=== PATIENT | male | born 1955 | race Caucasian/White ===

== ENCOUNTER 2018-08-16 08:00 | Inpatient (IN) | payer MEDICARE, OTHER ==
[2018-08-15 14:42] LABS: BASOPHILS % 0.5 % (0.0-1.0); EOSINOPHILS # (AUTO) 0.3 (0.0-0.4); EOSINOPHILS % 3.8 % (0.0-6.0); HEMATOCRIT 34.4 % (38.2-49.6); HEMOGLOBIN 11.6 g/dL (14.0-18.0); LYMPHOCYTES # (AUTO) 3.2 (1.0-3.2); LYMPHOCYTES % 41.9 % (18.0-39.1); MEAN CORPUSCULAR HGB CONC 33.7 g/dL (31-35); MONOCYTES # (AUTO) 0.6 (0.2-0.8); MONOCYTES % 7.7 % (4.4-11.3); NEUTROPHILS # (AUTO) 3.5 (2.1-6.9); PLATELET COUNT 249 x10e3/uL (140-360); RED BLOOD COUNT 3.74 x10e6/uL (4.3-5.7); RED CELL DISTRIBUTION WIDTH 13.4 % (11.7-14.4)
[2018-08-15 14:58] LABS: ANION GAP 11.7 mmol/L (8-16); BLOOD UREA NITROGEN 15 mg/dL (7-26); BUN/CREATININE RATIO 23 (6-25); CALCIUM 9.2 mg/dL (8.4-10.2); CARBON DIOXIDE 25 mmol/L (22-29); CHLORIDE 103 mmol/L (98-107); CREATININE, SERUM 0.64 mg/dL (0.72-1.25); EST GLOMERULAR FILTRATION RATE > 60 ML/MIN (60-); GLUCOSE 77 mg/dL (74-118); POTASSIUM 3.7 mmol/L (3.5-5.1); SODIUM 136 mmol/L (136-145)
--- NOTE | 2018-08-15 15:01 | Diagnostic Imaging Report ---
EXAMINATION: PA and lateral views of the chest. COMPARISON: None CLINICAL HISTORY: Preoperative study for urology procedure DISCUSSION: Lungs are well-inflated. No focal airspace consolidation, pleural effusion, or pneumothorax. Tortuous thoracic aorta with otherwise normal cardiomediastinal contour. No acute osseous abnormalities. Degenerative disc changes of the thoracic spine. IMPRESSION: No acute cardiopulmonary abnormalities. Signed by: Dr. Ricky Avila M.D. on 08/15/2018 2:58 PM
[~2018-08-16] VITALS: Ht 172.7 cm; Wt 63.1 kg
[~2018-08-16 08:00] MED LIST: DICLOFENAC SOD100 MG PO; DOCUSATE SODIU100 MG PO; FLOMAX0.4 MG PO; GABAPENTIN600 MG PO; IBUPROFEN400 MG PO; IRON PO; MORPHINE SULFAT30 M2 PO; MULTI-VITAMIN1 EACH PO; NORCO 10-325 T1 EACH PO; SENNOSIDES8.6 MG PO; STOOL SOFTENER50 MG PO; TYLENOL EXTRA500 MG PO; VITAMIN B-122500 MCG PO
--- OUTSIDE RECORDS SUMMARY | 2018-08-16 08:03 | XMS REPORT ---
Author Author [facility] Address Unknown Phone Unavailable Care Team Providers Care Electronic Commerce Specialist Name Role Phone DELORIS ACOSTA Unavailable Unavailable Problems This patient has no known problems. Allergies, Adverse Reactions, Alerts This patient has no known allergies or adverse reactions. Medications This patient has no known medications. Results Test Description Test Time Test Comments Text Results Atomic Results Result Comments CHEST 2 VIEWS 2018-08-15 14:57:00 [facility] [address] [address] Patient Name: YANNI JOYA JR MR #: [id number] : 1955 Age/Sex: 62/M Req #: [id number] Adm Physician: Ordered by: DELORIS ACOSTA MD Report #: [id number] Location: OR Room/Bed: Procedure: [id number] DX/CHEST 2 VIEWS Exam Date: 08/15/18 Exam Time: 1430 REPORT STATUS: Signed EXAMINATION: PA and lateral views of the chest. C OMPARISON: None CLINICAL HISTORY: Preoperative study for urology procedure DISCUSSION: Lungs are well-inflated. No focal airspace consolidation, pleural effusion, or pneumothorax. Tortuous thoracic aorta with otherwise normal cardiomediastinal contour. No acute osseous abnormalities. Degenerative disc changes of the thoracic spine. IMPRESSION: No acute cardiopulmonary abnormalities. Signed by: Dr. Sandee Benedict M.D. on 08/15/2018 2:58 PM Dictated By: SANDEE BENEDICT MD 58 Transcribed By: DAGOBERTO on 08/15/181457 COPY TO: DELORIS ACOSTA MD
[2018-08-16] MEDS ORDERED: GENTAMICIN 80MG/NS 100 ML 200 ML IV ONE (08:38)
[2018-08-16] MEDS ORDERED: CEFTRIAXONE SOD 1 GM/NS 50 ML 50 ML IV ONE (08:38)
[2018-08-16] MEDS ORDERED: BELLADONNA/OPIUM 30 MG SUPP RC ONE (10:35)
[2018-08-16] MEDS ORDERED: IOPAMIDOL 610MG/1ML 300 MG/ML VIAL IV ONE (10:35)
[2018-08-16] MEDS ORDERED: FENTANYL CITRATE/PF 100MCG/2 ML INJ ONE ×2 (12:07→13:41)
[2018-08-16] MEDS ORDERED: MORPHINE SULFATE INJ 4 MG/ML INJ 1ML ONE ×2 (12:19→12:42)
[2018-08-16] MEDS ORDERED: MIDAZOLAM HCL 2 MG/2 ML VIAL ONE ×2 (13:05→13:41)
[2018-08-16] MEDS ORDERED: NALOXONE HCL INJ 0.4 MG/ML AMP IV PRN (13:30)
[2018-08-16] MEDS ORDERED: DIPHENHYDRAMINE HCL 25 MG CAP PO PRN (13:30)
[2018-08-16] MEDS ORDERED: ONDANSETRON HCL INJ 2MG/ML 2ML 2 MG/ML VIAL IV PRN (13:30)
[2018-08-16] MEDS ORDERED: PHENAZOPYRIDINE HCL 100 MG TAB PO ONE (13:30)
[2018-08-16] MEDS ORDERED: KETAMINE HCL INJ 50 MG/ML 10 ML VIAL ONE (13:41)
[2018-08-16] MEDS ORDERED: MORPHINE SULFATE 1 MG/ML 30ML PCA ONE (14:19)
[2018-08-16 14:40] VITALS: BP 148/66
[2018-08-16] MEDS: D5.45%NS/KCL 20MEQ 1,000 ML IV SCH ×2 (15:12→21:24)
[2018-08-16] MEDS: PIPERACILLIN/TAZO 2.25 GM 50 ML IV SCH ×2 (15:12→21:26)
[2018-08-16 15:47] VITALS: BP 148/66
[2018-08-16] MEDS ORDERED: ONDANSETRON HCL INJ 2MG/ML 2ML 2 MG/ML VIAL ONE (17:29)
[2018-08-16] MEDS ORDERED: LIDOCAINE HCL 2% LOCAL INJ 5 ML SDV VIAL INJ ONE (17:29)
[2018-08-16] MEDS ORDERED: SEVOFLURANE INHAL SOLN 250 ML PEN BTL ONE (17:29)
[2018-08-16] MEDS ORDERED: PROPOFOL IV EMULSION 10 MG/ML 20 ML VIAL ONE (17:29)
[2018-08-16] MEDS ORDERED: DOCUSATE SODIUM 50 MG PO SCH (17:30)
[2018-08-16] MEDS ORDERED: IBUPROFEN 400 MG TAB PO PRN (17:30)
[2018-08-16] MEDS ORDERED: SENNOSIDES 8.6 MG TAB PO PRN (17:30)
--- NOTE | 2018-08-16 17:31 | Diagnostic Imaging Report ---
Bilateral retrograde urography Indications: ^[id number] ^1044 ^C-ARM RETROGRADE PYELOGRAMS Comparison: None RADIATION DOSE: Fluoroscopy Time: 00:00:15 min Dose (Kerma) Area Product: 122.75 mGycm2 Air Kerma (AK) value has been reviewed. It is below the limits set by the Radiation Protocol Committee (RPC) committee. Findings: Contrast was injected into the left ureter in a retrograde fashion.The caliber of the left ureter appears normal. Left renal collecting system also filled unremarkably. Contrast was injected into the right ureter in a retrograde fashion.The caliber of the right ureter appears normal. Right renal collecting system also filled unremarkably. IMPRESSION: Unremarkable bilateral retrograde urography. Signed by: Dr. Marline Calloway MD on 08/16/2018 5:28 PM
[2018-08-16] MEDS: DOCUSATE SODIUM 100 MG CAP PO SCH (17:54)
[2018-08-16] MEDS: PHENAZOPYRIDINE HCL 100 MG TAB PO SCH (17:54)
[2018-08-16] MEDS ORDERED: DOCUSATE SODIUM LIQD 100 MG/10 ML UDC PO PRN (18:45)
--- NOTE | 2018-08-16 19:10 | NUR ---
REPORT RECEIVED FROM OFF GOING NURSE, PT RESTING IN BED ALERT AND ORIENTED, NO DISTRESS NOTED, IV INFUSING PER ORDER, OVERNIGHT BABYSITTER IN PLACE, CBI IN PROGRESS AND PATENT WITH NO COMPLICATIONS NOTED, CALL LIGHT IN REACH, INSTRUCTED TO CALL WITH NEEDS
[2018-08-16 20:00] VITALS: BP 122/59
[2018-08-16] MEDS ORDERED: NON-FORMULARY MEDICATION (Gabapentin 600 MG) PO SCH (21:00)
[2018-08-16] MEDS: GABAPENTIN 300 MG CAP PO SCH (21:00)
[2018-08-17] VITALS (7 sets, daily range): BP systolic 104–130; BP diastolic 55–60
[2018-08-17] MEDS: PIPERACILLIN/TAZO 2.25 GM 50 ML IV SCH ×3 (05:07→21:59)
[2018-08-17] MEDS: MORPHINE SULFATE 1 MG/ML 30ML PCA IV PRN ×3 (05:14→17:11)
[2018-08-17 05:29] LABS: BASOPHILS % 0.2 % (0.0-1.0); EOSINOPHILS # (AUTO) 0.2 (0.0-0.4); EOSINOPHILS % 2.1 % (0.0-6.0); HEMATOCRIT 27.2 % (38.2-49.6); HEMOGLOBIN 9.6 g/dL (14.0-18.0); LYMPHOCYTES # (AUTO) 1.6 (1.0-3.2); LYMPHOCYTES % 15.5 % (18.0-39.1); MEAN CORPUSCULAR HEMOGLOBIN 32.3 pg (28-32); MEAN CORPUSCULAR HGB CONC 35.3 g/dL (31-35); MEAN CORPUSCULAR VOLUME 91.6 fL (81-99); MONOCYTES # (AUTO) 0.8 (0.2-0.8); MONOCYTES % 7.5 % (4.4-11.3); NEUTROPHILS # (AUTO) 7.5 (2.1-6.9); NEUTROPHILS % 74.4 % (38.7-80.0); PLATELET COUNT 196 x10e3/uL (140-360); RED BLOOD COUNT 2.97 x10e6/uL (4.3-5.7); RED CELL DISTRIBUTION WIDTH 14.4 % (11.7-14.4)
[2018-08-17] MEDS: D5.45%NS/KCL 20MEQ 1,000 ML IV SCH ×3 (05:30→21:30)
[2018-08-17 05:49] LABS: BLOOD UREA NITROGEN 6 mg/dL (7-26); BUN/CREATININE RATIO 10 (6-25); CALCIUM 7.9 mg/dL (8.4-10.2); CARBON DIOXIDE 19 mmol/L (22-29); CHLORIDE 118 mmol/L (98-107); CREATININE, SERUM 0.58 mg/dL (0.72-1.25); EST GLOMERULAR FILTRATION RATE > 60 ML/MIN (60-); GLUCOSE 105 mg/dL (74-118); SODIUM 141 mmol/L (136-145)
--- NOTE | 2018-08-17 07:12 | History and Physical ---
HISTORY OF PRESENT ILLNESS: The patient is a 62-year-old gentleman who comes with TURP, the patient had prostatic symptoms of benign prostatic hypertrophy. The patient has a second procedure for TURP. PAST MEDICAL HISTORY: History of orthopedic surgeries and low back problems; otherwise, noncontributory. No hypertension, no diabetes, no hyperlipidemia. MEDICATIONS: Medicines the patient takes at home are 900 mg q.6h., vitamin B12 daily, diclofenac 100 mg ER once a day, docusate once a day, gabapentin 600 mg 3 times a day, Aguilar 10/325 mg q.6h., morphine sulfate 30 mg b.i.d., sennosides 8.6 mg, and tamsulosin 0.4 mg. SURGICAL HISTORY: Multiple back surgeries and history of prostate surgeries in the past. REVIEW OF SYSTEMS: Negative for chest pain. No shortness of breath. No nausea, vomiting, or diarrhea. No constipation. No rectal bleeding. No hematochezia. Positive for hematuria after TURP. ALLERGIES: NO DRUG ALLERGIES. SOCIAL HISTORY: No ETOH. No IV drug abuse. PHYSICAL EXAMINATION VITAL SIGNS: Temperature is 98.7, pulse of 61, respirations of 20, blood pressure is 122/60 with pulse oximetry of 95% on room air. HEENT: Normocephalic and atraumatic. Pupils are reactive to light and accommodation. CVS: S1 and S2 normal. Regular rate and rhythm. ABDOMEN: Nontender and nondistended. Leroy to gravity and being irrigated at this time. Positive for blood in the Leroy catheter. EXTREMITIES: No clubbing, no cyanosis, and no edema. LABORATORY VALUES: White count is 10.13, hemoglobin of 9.6, hematocrit of 27.2, and platelet count 196, neutrophil count 74.5. Chemistry; sodium 141, potassium of 4.0, chloride of 118, BUN 6, creatinine 0.59 and calcium 7.9. IMAGING STUDIES: Retrograde pyelogram was done yesterday before TURP, unremarkable. ASSESSMENT: This 62-year-old gentleman; 1. Status post TURP for benign prostatic hypertrophy. 2. History of low back pain. PLAN: Plan is to continue with bladder irrigation. Follow up with labs. Continue monitoring his vitals. Further recommendations per clinical course. At this time, the patient seems to be asymptomatic. Last T-max was 100.4, keep watching for spikes in temperature. Incentive spirometry further recommendations per clinical course. Job#: [id number] JUN
[2018-08-17] MEDS: PHENAZOPYRIDINE HCL 100 MG TAB PO SCH ×3 (08:21→17:06)
[2018-08-17] MEDS: MULTIVITAMINS/MINERALS TAB PO SCH (08:21)
[2018-08-17] MEDS: TAMSULOSIN HCL 0.4 MG CAP PO SCH (08:21)
[2018-08-17] MEDS: GABAPENTIN 300 MG CAP PO SCH ×3 (08:21→20:08)
[2018-08-17] MEDS: DOCUSATE SODIUM 100 MG CAP PO SCH ×2 (08:21→17:06)
[2018-08-17] MEDS: FERROUS SULFATE 325 MG TAB PO SCH (08:21)
[2018-08-17] MEDS: CYANOCOBALAMIN 1,000 MCG TAB PO SCH ×2 (08:22→17:06)
[2018-08-17] MEDS ORDERED: NON-FORMULARY MEDICATION ([Iron] 65 MG) PO SCH (09:00)
[2018-08-17] MEDS ORDERED: CYANOCOBALAMIN 2500 MCG PO SCH (09:00)
--- NOTE | 2018-08-17 13:12 | NUR ---
Loading Checker to bedside to discuss plan of care with patient/family. CM/SW role and care transitions discussed. Anticipated discharge plan discussed along with duration of care. CM/SW discussed patients right to make decisions in care. CM/SW work hours given. Patient lives: alone in an apartment Admit/Transfer: From PACU POA/Emergency contact: radha Hayes [phone] Current/Previous Home Health: none PCP/Follow-up Care: Dr. Willis Current/Previous DME: has walker, wheelchair, raised toilet seat, shower bench; states he has been mostly wheelchair bound Other Services: none Employment Status: unemployed Areas of Concerns: weakness Referral Needs: home health vs snf Education Needs: none IMM/NAPOLES given and signed (if applicable): IMM Goal for discharge: pt stated he wants to go to inpatient rehab from hospital. Stated he was a [place] previously and the therapist there recommended he go to inpatient rehab, but somehow he "fell thru the cracks" and was discharged home. Stated Dr. Willis told him he would be able to go to inpatient rehab next time he was in the hospital. CM explained to him that he would have to qualify for inpatient rehab and insurance would have to approve it. Pt acknowledged and asked that CM speak with Dr. Juarez regarding rehab. CM called and spoke with Dr. Juarez, who stated that pt is medically stable for discharge. Dr. Juarez does not think pt would qualify for inpatient rehab. Stated he can discharge once cleared by urology. Dr. Li wrote order for home health yesterday. CM informed pt regarding order. He states that he does not want CM to set up home health at this time. Wants to speak to Dr. Li prior to making any decisions. Pending rounds by Dr. Li. CM/SW left business card at the bedside with contact information. Name and number was also written on the patients whiteboard. Patient verbalized understanding of discussion. CM will follow-up with ongoing discharge and transition of care needs.
--- NOTE | 2018-08-17 19:10 | NUR ---
REPORT RECEIVED FROM OFF GOING NURSE, PT RESTING IN BED ALERT AND ORIENTED, NO DISTRESS NOTED, IV INFUSING PER ORDER, SPEECH LANGUAGE PATHOLOGIST AT BEDSIDE WITH BUTTON IN REACH, CBI IN PROGRESS WITH NO DISTRESS NOTED, DENIES NEEDS, CALL LIGHT IN REACH, INSTRUCTED TO CALL WITH NEEDS
[2018-08-18] VITALS (8 sets, daily range): BP systolic 102–133; BP diastolic 55–62
--- NOTE | 2018-08-18 04:32 | NUR ---
PT RESTING IN BED ALERT AND ORIENTED, NO DISTRESS NOTED, DENIES NEEDS, CALL LIGHT IN REACH, WORSHIP DIRECTOR PUMP BUTTON IN HAND, CBI IN PLACE WITH NO COMPLICATIONS NOTED, INSTRUCTED TO CALL WITH NEEDS
[2018-08-18 05:17] LABS: BASOPHILS % 0.3 % (0.0-1.0); EOSINOPHILS # (AUTO) 0.5 (0.0-0.4); EOSINOPHILS % 4.8 % (0.0-6.0); HEMATOCRIT 26.3 % (38.2-49.6); HEMOGLOBIN 9.4 g/dL (14.0-18.0); LYMPHOCYTES # (AUTO) 2.5 (1.0-3.2); LYMPHOCYTES % 25.1 % (18.0-39.1); MEAN CORPUSCULAR HEMOGLOBIN 33.1 pg (28-32); MEAN CORPUSCULAR HGB CONC 35.7 g/dL (31-35); MEAN CORPUSCULAR VOLUME 92.6 fL (81-99); MONOCYTES # (AUTO) 1.1 (0.2-0.8); MONOCYTES % 11.1 % (4.4-11.3); NEUTROPHILS # (AUTO) 5.8 (2.1-6.9); NEUTROPHILS % 58.4 % (38.7-80.0); PLATELET COUNT 149 x10e3/uL (140-360); RED BLOOD COUNT 2.84 x10e6/uL (4.3-5.7); RED CELL DISTRIBUTION WIDTH 14.3 % (11.7-14.4)
[2018-08-18] MEDS: PIPERACILLIN/TAZO 2.25 GM 50 ML IV SCH ×3 (05:17→21:49)
[2018-08-18] MEDS: D5.45%NS/KCL 20MEQ 1,000 ML IV SCH ×2 (05:30→10:28)
[2018-08-18 05:38] LABS: ANION GAP 11.3 mmol/L (8-16); BLOOD UREA NITROGEN 6 mg/dL (7-26); BUN/CREATININE RATIO 10 (6-25); CALCIUM 8.7 mg/dL (8.4-10.2); CARBON DIOXIDE 23 mmol/L (22-29); CHLORIDE 110 mmol/L (98-107); CREATININE, SERUM 0.62 mg/dL (0.72-1.25); EST GLOMERULAR FILTRATION RATE > 60 ML/MIN (60-); GLUCOSE 92 mg/dL (74-118); POTASSIUM 4.3 mmol/L (3.5-5.1); SODIUM 140 mmol/L (136-145)
[2018-08-18] MEDS: DOCUSATE SODIUM 100 MG CAP PO SCH ×2 (08:09→17:22)
[2018-08-18] MEDS: GABAPENTIN 300 MG CAP PO SCH ×3 (08:09→20:13)
[2018-08-18] MEDS: MULTIVITAMINS/MINERALS TAB PO SCH (08:09)
[2018-08-18] MEDS: CYANOCOBALAMIN 1,000 MCG TAB PO SCH ×2 (08:09→17:22)
[2018-08-18] MEDS: PHENAZOPYRIDINE HCL 100 MG TAB PO SCH ×3 (08:09→17:22)
[2018-08-18] MEDS: FERROUS SULFATE 325 MG TAB PO SCH (08:09)
[2018-08-18] MEDS: TAMSULOSIN HCL 0.4 MG CAP PO SCH (08:09)
[2018-08-18] MEDS ORDERED: ACETAMINOPHEN/CODEINE 300MG - 30MG TAB PO PRN (10:15)
--- NOTE | 2018-08-18 10:15 | NUR ---
TRACY SAEZ , SERIALS STARTED
--- NOTE | 2018-08-18 12:30 | NUR ---
PT VOIDED AFTER MOLINA REMOVAL (PINK URINE)
[2018-08-18] MEDS: MORPHINE SULFATE 1 MG/ML 30ML PCA IV PRN (14:30)
--- NOTE | 2018-08-18 19:26 | NUR ---
PT IS RESTING IN BED. NO RESPIRATORY DISTRESS NOTED. BED IN THE LOWEST POSITION, LOCKED, AND CALL LIGHT WITHIN REACH. WILL CONTINUE TO MONITOR.
[2018-08-19] VITALS: BP 111/51
--- NOTE | 2018-08-19 00:07 | Progress Note ---
DATE: SUBJECTIVE: A 62-year-old male status post TURP, doing well. No complaints. Pain is controlled. Patient is undergoing bladder irrigation now. The Leroy looks good and the hematuria has decreased drastically. OBJECTIVE GENERAL: Patient is alert and oriented x3. VITAL SIGNS: Temperature is 98.9, pulse of 60, respirations of 20, blood pressure is 113/57, pulse oximetry 97% on room air. HEENT: Normocephalic, atraumatic. Pupils are reactive to light and accommodation. CVS: S1, S2 normal. Regular rate and rhythm. ABDOMEN: Nontender and nondistended. EXTREMITIES: No clubbing, no cyanosis, no edema. GENITOURINARY: Leroy catheter to gravity. Patient is asymptomatic at this time. Complains of back pain, which is baseline for him. LABORATORY VALUES: Hemoglobin is 9.4, hematocrit of 26.3 and no left shift present. Chemistries normal. Chloride is 110. BUN and creatinine within normal limits. ASSESSMENT AND PLAN: A 62-year-old man status post transurethral resection of prostate for benign prostatic hypertrophy, doing well. Patient can be discharged home on Leroy catheter with continuous irrigation at home. Further recommendations per clinical course. The patient can be discharged and follow up with his primary care physician, Dr. Willis and also with Dr. Li in a couple of days. Further recommendations as an outpatient. Job#: [id number] TAYO
[2018-08-19] MEDS: MORPHINE SULFATE 1 MG/ML 30ML PCA IV PRN (04:16)
[2018-08-19 05:22] LABS: BASOPHILS % 0.4 % (0.0-1.0); EOSINOPHILS # (AUTO) 0.5 (0.0-0.4); EOSINOPHILS % 5.9 % (0.0-6.0); HEMATOCRIT 25.9 % (38.2-49.6); HEMOGLOBIN 9.8 g/dL (14.0-18.0); LYMPHOCYTES # (AUTO) 2.9 (1.0-3.2); LYMPHOCYTES % 32.1 % (18.0-39.1); MEAN CORPUSCULAR HEMOGLOBIN 34.6 pg (28-32); MEAN CORPUSCULAR HGB CONC 37.8 g/dL (31-35); MEAN CORPUSCULAR VOLUME 91.5 fL (81-99); MONOCYTES # (AUTO) 0.9 (0.2-0.8); MONOCYTES % 9.8 % (4.4-11.3); NEUTROPHILS # (AUTO) 4.7 (2.1-6.9); NEUTROPHILS % 51.4 % (38.7-80.0); PLATELET COUNT 171 x10e3/uL (140-360); RED BLOOD COUNT 2.83 x10e6/uL (4.3-5.7); RED CELL DISTRIBUTION WIDTH 13.8 % (11.7-14.4)
[2018-08-19 05:55] LABS: ANION GAP 13.7 mmol/L (8-16); BLOOD UREA NITROGEN 7 mg/dL (7-26); BUN/CREATININE RATIO 11 (6-25); CALCIUM 8.7 mg/dL (8.4-10.2); CARBON DIOXIDE 23 mmol/L (22-29); CHLORIDE 108 mmol/L (98-107); CREATININE, SERUM 0.62 mg/dL (0.72-1.25); EST GLOMERULAR FILTRATION RATE > 60 ML/MIN (60-); GLUCOSE 118 mg/dL (74-118); POTASSIUM 3.7 mmol/L (3.5-5.1); SODIUM 141 mmol/L (136-145)
[2018-08-19] MEDS: PIPERACILLIN/TAZO 2.25 GM 50 ML IV SCH ×3 (05:56→21:45)
--- NOTE | 2018-08-19 07:36 | NUR ---
patient resting in bed, Alert with no distress, call light in reach, on AMBULETTE DRIVER PUMP, Resp even and unlabored, normal breathing
[2018-08-19 07:49] VITALS: BP 111/55
[2018-08-19] MEDS: GABAPENTIN 300 MG CAP PO SCH ×3 (08:41→21:45)
[2018-08-19] MEDS: PHENAZOPYRIDINE HCL 100 MG TAB PO SCH ×3 (08:41→17:31)
[2018-08-19] MEDS: FERROUS SULFATE 325 MG TAB PO SCH (08:41)
[2018-08-19] MEDS: TAMSULOSIN HCL 0.4 MG CAP PO SCH (08:41)
[2018-08-19] MEDS: DOCUSATE SODIUM 100 MG CAP PO SCH ×2 (08:41→17:31)
[2018-08-19] MEDS: CYANOCOBALAMIN 1,000 MCG TAB PO SCH ×2 (08:41→17:31)
[2018-08-19] MEDS: MULTIVITAMINS/MINERALS TAB PO SCH (08:41)
[2018-08-19 08:53] VITALS: BP 111/55
[2018-08-19 12:10] VITALS: BP 119/61
--- NOTE | 2018-08-19 14:12 | NUR ---
PT SIGNED CHOICE FOR [facility]. FAXED CLINICALS TO [phone]. WILL UPDATE IF AUTH GIVEN.
[2018-08-19] MEDS: D5.45%NS/KCL 20MEQ 1,000 ML IV SCH (14:45)
--- NOTE | 2018-08-19 15:59 | NUR ---
FILLED OUT PASRR FILED ON CHART FILLED OUT RTF GAVE TO NURSE SIGNED IMM AND FILED IN CHART.
--- NOTE | 2018-08-19 15:59 | NUR ---
FACILITY TO CALL NURSES STATION TO GIVE ROOM NUMBER.
[2018-08-19 16:08] VITALS: BP 144/66
--- NOTE | 2018-08-19 18:35 | NUR ---
patient resting in bed, on SURGERY SCHEDULER PUMP, Called [facility] area regarding bed, they said they still waiting for Auth, patient not in any distress, normal breathing pattern, no labored breathing
[2018-08-19 20:00] VITALS: BP 113/61
--- NOTE | 2018-08-19 20:05 | NUR ---
PATIENT INCONTINENT OF URINE, KEPT CLEAN AND DRY. HE'S ENCOURAGED TO REPOSITION FREQUENTLY IN BED TO PREVENT PRESSURE ULCER. CALL LIGHT WITHIN EASY REACH, BED ALARM ON.
--- NOTE | 2018-08-19 23:30 | NUR ---
PATIENT RESTING IN BED, NO RESPIRATORY DISTRESS OBSERVED. ASSISTED WITH ADLS, BED ALARM ON, CALL LIGHT WITHIN EASY REACH.
[2018-08-20] VITALS (7 sets, daily range): BP systolic 96–141; BP diastolic 55–63
--- NOTE | 2018-08-20 03:40 | NUR ---
PATIENT ASSISTED WITH ADLS, HE'S ENCOURAGED TO REPOSITION FREQUENTLY IN BED DUE TO REDNESS TO THE SACRUM.
[2018-08-20 05:15] LABS: BASOPHILS % 0.5 % (0.0-1.0); EOSINOPHILS # (AUTO) 0.5 (0.0-0.4); EOSINOPHILS % 6.3 % (0.0-6.0); HEMATOCRIT 29.6 % (38.2-49.6); HEMOGLOBIN 9.6 g/dL (14.0-18.0); LYMPHOCYTES # (AUTO) 2.8 (1.0-3.2); LYMPHOCYTES % 35.9 % (18.0-39.1); MEAN CORPUSCULAR HGB CONC 32.4 g/dL (31-35); MEAN CORPUSCULAR VOLUME 95.5 fL (81-99); MONOCYTES # (AUTO) 0.9 (0.2-0.8); MONOCYTES % 11.3 % (4.4-11.3); NEUTROPHILS # (AUTO) 3.5 (2.1-6.9); NEUTROPHILS % 45.4 % (38.7-80.0); PLATELET COUNT 222 x10e3/uL (140-360); RED CELL DISTRIBUTION WIDTH 13.6 % (11.7-14.4)
[2018-08-20 05:35] LABS: BLOOD UREA NITROGEN 9 mg/dL (7-26); BUN/CREATININE RATIO 13 (6-25); CALCIUM 8.8 mg/dL (8.4-10.2); CARBON DIOXIDE 24 mmol/L (22-29); CHLORIDE 108 mmol/L (98-107); CREATININE, SERUM 0.67 mg/dL (0.72-1.25); EST GLOMERULAR FILTRATION RATE > 60 ML/MIN (60-); GLUCOSE 93 mg/dL (74-118); SODIUM 140 mmol/L (136-145)
--- NOTE | 2018-08-20 06:45 | NUR ---
PATIENT IV NOTED LEAKING, IV REMOVED WITH TIP INTACT. IV #20 GAUGE INSERTED LEFT FOREARM, PATIENT TOLERATED PROCEDURE WELL, IV ANTIBIOTIC INFUSING ORDERED.
[2018-08-20] MEDS: PIPERACILLIN/TAZO 2.25 GM 50 ML IV SCH ×3 (06:47→21:24)
--- NOTE | 2018-08-20 08:10 | NUR ---
patient up in bed, eating breakfast, no resp distress noted, normal breathing pattern, call light in reach
[2018-08-20] MEDS: PHENAZOPYRIDINE HCL 100 MG TAB PO SCH ×3 (08:31→18:09)
[2018-08-20] MEDS: FERROUS SULFATE 325 MG TAB PO SCH (08:31)
[2018-08-20] MEDS: CYANOCOBALAMIN 1,000 MCG TAB PO SCH ×2 (08:31→18:08)
[2018-08-20] MEDS: DOCUSATE SODIUM 100 MG CAP PO SCH ×2 (08:31→18:08)
[2018-08-20] MEDS: GABAPENTIN 300 MG CAP PO SCH ×3 (08:31→21:24)
[2018-08-20] MEDS: MULTIVITAMINS/MINERALS TAB PO SCH (08:31)
[2018-08-20] MEDS: TAMSULOSIN HCL 0.4 MG CAP PO SCH (08:31)
[2018-08-20] MEDS: D5.45%NS/KCL 20MEQ 1,000 ML IV SCH (10:34)
--- NOTE | 2018-08-20 10:50 | NUR ---
WOUND CARE CONSULTATION - INITIAL EVALUATION Patient admitted for benign prostatic hypertrophy and is S/P TURP. Patient pending discharge to SNF. HX: Low back pain, benign prostatic hypertrophy. WBC7.79 HGB9.6 HCT29.6 NEUT%45.4 GLU93 Wound Care Consulted for evaluation redness to sacrum, bilateral elbows. PATIENT VISIT - Patient getting back in bed at time of visit/ using walker - Using elbows to push self up in bed. - Redness noted to left elbow - Right Elbow presents with open area- 3x3x<0.1 cm - Sacral- Blanchable [place] Skin- Skin Intact. - Patient offered information that he is frequently turning in bed. - Leonidas Score 19 - Conservative PUP IMPRESSION: Sacral- No Wounds. Right Elbow - Abrasion. 3x3x<0.1cm. Mild erythema to periwound. Uses elbows to frequently reposition in bed. RECOMMENDATION: Right Elbow- Abrasion- - Cleanse with NS and 4x4 gauze and pat dry thoroughly. - Apply [place] Skin Protectant and Allow to dry, then cover with Allevyn Foam "Heel" Dressing every 3 days. Thank you for consulting Wound Care. Addendum: 08/20/18 at 1100 by Paulino Mckoy RN Amended: Links added.
--- NOTE | 2018-08-20 12:03 | NUR ---
New order recvd from Dr Jen Shaver to [place] SOCIAL STAFF WORKER pump and discontinued money room supervisor pump
--- NOTE | 2018-08-20 12:14 | NUR ---
CM SPOKE WITH INTAKE AT [facility]. [facility] HAS RECEIVED AUTHORIZATION. PER SEGREGATOR AT [facility], PATIENT MUST BE OFF SYNTHETIC RESIN OPERATOR PUMP FOR 24 HOURS PRIOR TO TRANSFER. PENDING PATIENT TRANSFERRING TO PENITENTIARY FACILITY: [facility] Address: [address] , [place] [address] PENDING SYNTHETIC RESIN OPERATOR TO BE REMOVED FOR 24 HOURS TO RECEIVE ROOM NUMBER AND RECEIVING PHYSICIAN.
[2018-08-20] MEDS: ACETAMINOPHEN/CODEINE 300MG - 30MG TAB PO PRN (17:55)
--- NOTE | 2018-08-20 18:36 | NUR ---
patient up in bed, Alert with no distress, call light in reach, rating pain 3/10 lower back
--- NOTE | 2018-08-20 22:50 | NUR ---
WALKING ROUNDS MADE AND PATIENT REFUSED TO HAVE HIS BED ALARM ON. CALL LIGHT WITHIN EASY REACH, INSTRUCTED TO CALL FOR ASSISTANCE NEEDED.
[2018-08-21] VITALS: BP 122/58
[2018-08-21] MEDS: ACETAMINOPHEN/CODEINE 300MG - 30MG TAB PO PRN ×3 (03:07→13:01)
--- NOTE | 2018-08-21 03:15 | NUR ---
PATIENT IN CONTINENT OF URINE, HIS GOWN AND PAD CHANGED AND HE'S KEPT CLEAN AND DRY. HE C/O PAIN TO THE BACK WITH PAIN SCORE #6, MEDICATED WITH TYLENOL #3 ORDERED. CALL LIGHT WITHIN EASY REACH, PATIENT REFUSED TO HAVE HIS BED ALARM ON.
[2018-08-21 04:00] VITALS: BP 122/64
[2018-08-21] MEDS: PIPERACILLIN/TAZO 2.25 GM 50 ML IV SCH ×2 (06:08→13:24)
[2018-08-21] MEDS: D5.45%NS/KCL 20MEQ 1,000 ML IV SCH (06:34)
--- NOTE | 2018-08-21 07:32 | NUR ---
Received patient and walking rounds complete. Patient resting in bed at this time no signs of distress. Bed in lowest position, wheels locked, side rails x2, call light in reach. Will continue to monitor.
[2018-08-21] MEDS: MULTIVITAMINS/MINERALS TAB PO SCH (08:16)
[2018-08-21] MEDS: GABAPENTIN 300 MG CAP PO SCH ×2 (08:16→15:14)
[2018-08-21] MEDS: CYANOCOBALAMIN 1,000 MCG TAB PO SCH ×2 (08:16→17:31)
[2018-08-21] MEDS: FERROUS SULFATE 325 MG TAB PO SCH (08:16)
[2018-08-21] MEDS: PHENAZOPYRIDINE HCL 100 MG TAB PO SCH ×3 (08:16→17:31)
[2018-08-21] MEDS: TAMSULOSIN HCL 0.4 MG CAP PO SCH (08:16)
[2018-08-21] MEDS: DOCUSATE SODIUM 100 MG CAP PO SCH ×2 (08:16→17:31)
[2018-08-21 08:19] VITALS: BP 111/60
--- NOTE | 2018-08-21 10:00 | NUR ---
Patient A/O x3, breathing even and unlabored on room air. Bowel sounds active. Last BM yesterday. Discomfort in lower back, pain medication given. Skin is intact, no edema. Dressing and elbow pad on right elbow. Patient voids in urinal. Max assist, uses wheelchair and walker at home. IV in LFA with D5 KCL @ 50mls/hr. Patient is incontinent at times and has diaper on. No signs of distress. Will continue to monitor.
[2018-08-21 10:58] VITALS: BP 111/60
[2018-08-21 12:19] VITALS: BP 109/69
--- NOTE | 2018-08-21 15:48 | NUR ---
Report called and given to nurse Jaime at [facility].
--- NOTE | 2018-08-21 16:05 | NUR ---
Removed catheters IV. Catheter tip intact and pressure dressing applied.
--- NOTE | 2018-08-21 18:05 | NUR ---
Patient left to [facility]. Left in stretcher and will be transported by EMS. No signs of distress during discharge.
--- NOTE | 2018-08-24 22:22 | Operative Report ---
DATE OF PROCEDURE: August 16, 2018 PREOPERATIVE DIAGNOSES 1. Obstructive benign prostatic hypertrophy. 2. History of bladder cancer. POSTOPERATIVE DIAGNOSES 1. Obstructive benign prostatic hypertrophy. 2. History of bladder cancer. PROCEDURES PERFORMED 1. Cystourethroscopy with bilateral ureteral catheterization and retrograde ureteropyelography (separately performed for the bladder cancer). 2. Interpretation of retrograde ureteropyelography. 3. Supervision of fluoroscopy. No radiologist present. 4. Cystourethroscopy with transurethral resection of the prostate utilizing the plasma button electrode. ANESTHESIA: General. COMPLICATIONS: None. CLINICAL SUMMARY: Winston Ascencio Jr. is a 62-year-old man who is fairly debilitated and has had some significant voiding dysfunction. The patient has had previous transurethral prostatectomy. He had some residual obstructive symptomatology and problems urinating, elected to proceed with additional transurethral resection to eliminate some residual as well as re-growth of obstructing tissue. He is aware of the risks of bleeding, infection, injury to adjacent structures, incontinence, impotence, retrograde ejaculation, need for additional procedures, and he elected to proceed. OPERATIVE PROCEDURE IN DETAIL: Informed consent was verified. Winston Ascencio Jr. was properly identified, taken to the operating room, and placed on the cystoscopy table in the supine position. Anesthesia was uneventfully begun. The 22.5-Cymraes cystoscope sheath with the visual obturator in place was atraumatically inserted into the patient's urethra. It was guided down a relatively unremarkable urethra through some insignificant blanching and scarring at the sphincteric region and into the prostate bed. The prostate bed was status post transurethral resection. There was some anterior residual tissue that was collapsing and causing some visual obstruction. There was some mild apical re-growth that was present. There was a band-like bar at the bladder neck as well. We entered the patient's bladder, which revealed heavy trabeculations, but no tumors, no stones, and no suspicious lesions. No bladder cancer recurrence could be appreciated and an ureteral catheter was utilized to cannulate each ureter and retrograde ureteral pyelograms were performed. Interpretation of retrograde ureteropyelography: Contrast was instilled in a retrograde fashion bilaterally. There were no tumors, there were no stones, and there were no diverticula. No suspicious upper tract lesions were identified. Calices were sharp and delicate throughout. The right kidney appeared to have a malrotated type of appearance and there was a relative narrowing at the ureteropelvic junction. Nevertheless, there was hydronephrosis and unobstructed drainage could be seen fluoroscopically bilaterally. The cystoscope was withdrawn and a resectoscope sheath was atraumatically placed. We utilized the plasma button electrode to first eliminate the bar located at the posterior bladder neck. Once we vaporized this bar and opened the bladder neck wide open, we proceeded with vaporizing the anterior tissue as well as residual and re-growth of apical tissue down to the surgical capsule. Hemostasis was verified with pinpoint electrocautery. The resectoscope was withdrawn. A Leroy catheter was placed. Belladonna and opium suppository was placed revealing a flat large prostate, non-fluctuant without any nodules and the patient was uneventfully reversed from anesthesia and taken to the recovery in stable condition. There were no complications to the procedure. Patient tolerated the procedure well. Estimated blood loss was minimal. We will plan to proceed with routine postoperative care. Due to the patient's relative debility and near impossibility of carrying for his own Leroy, we will admit the patient for his postoperative care as well as assess his physical capabilities at that time. Job#: [id number] RTY cc:Neil Willis MD
== END 2018-08-21 18:05 | DRG 713 ==
LOC: OR 08:00 → PACU V 13:38 → MED/SURG 14:37
PROVIDERS: ADMIT Internal Medicine; ATTEND Internal Medicine
PROC: BT141ZZ Fluoroscopy of Kidneys, Ureters and Bladder using Low Osmolar Contrast (ICD-10-PCS; 2018-08-16)
PROC: 0V508ZZ Destruction of Prostate, Via Natural or Artificial Opening Endoscopic (ICD-10-PCS; principal; 2018-08-16 10:00)
DX: N40.1 Benign prostatic hyperplasia with lower urinary tract symptoms (principal); N13.8 Other obstructive and reflux uropathy; Z85.51 Personal history of malignant neoplasm of bladder; D64.9 Anemia, unspecified; N39.41 Urge incontinence; R53.1 Weakness
CPT/HCPCS: 36415; 71046; 74420; 80048; 83735; 85025; 93005; 96367; 97139; J0696; J1580; J2001; J2250; J2270; J2310; J2405; J2543